=== PATIENT | female | born 1965 | race Caucasian/White ===

== ENCOUNTER 2016-06-09 15:57 | Emergency (ER) | payer BC ==
[2016-06-09] MEDS ORDERED: ASPIRIN 81 MG CHEWABLE TABLET PO ONE (16:22)
[2016-06-09] MEDS ORDERED: 0.9 % SODIUM CHLORIDE 1000ML 1,000 ML IV PRN (16:22)
[2016-06-09] MEDS ORDERED: GUAIFENESIN/D-METH. 10 ML UDC PO ONE (16:26)
--- NOTE | 2016-06-09 16:26 | Emergency Department Record ---
History of Present Illness - General Chief Complaint: Chest Pain Stated Complaint: CHEST PAIN WHEN COUGHING Time Seen by Provider: 06/09/16 16:19 Source: Patient, RN notes reviewed Mode of Arrival: Ambulatory - History of Present Illness Initial Comments: cough and chillles and fever and chest pain with coughing and history of percarditis oct 2015. sweating and she has had a flu shot this season Onset/Timin -: Days(s) Onset: During rest Pain Location: Substernal Pain Radiation: Back Severity scale (1-10): >10 Quality: Sharp, Other Improves With: Nothing Worsens With: Nothing Treatments Prior to Arrival: Other Treatment Prior to Arrival Comment:: Advil 1500 - Related Data Home Medications Medication Instructions Recorded Confirmed Last Taken Albuterol Sulfate [Proventil Hfa] 1 - 2 puff INH .EVERY 4-6 HOURS PRN 11/15/15 06/09/16 06/08/16 Lisinopril 10 mg PO DAILY 11/15/15 06/09/16 06/07/16 Pioglitazone HCl [Actos] 30 mg PO DAILY 11/15/15 06/09/16 06/07/16 Sitagliptin Phosphate [Januvia] 100 mg PO DAILY 11/15/15 06/09/16 06/07/16 Previous Rx's Medication Instructions Recorded Azithromycin 500 mg PO DAILY #7 tablet 06/09/16 Prednisone [Prednisone 10Mg] 10 mg PO ASDIR #30 tab 06/09/16 Allergies Allergy/AdvReac Type Severity Reaction Status Date / Time codeine Allergy Unknown NAUSEA Verified 11/15/15 08:02 Travel Screening - Travel/Exposure Within Last 30 Days Have you traveled within the last 30 days?: No - Travel/Exposure Within Last Year Have you traveled outside the [place] in the last year?: No - Additonal Travel Details Have you been exposed to anyone with a communicable illness?: No - Travel Symptoms Symptom Screening: None Review of Systems Reviewed: No additional complaints except as noted below Constitutional: Reports: As per HPI, Chills, Fever. Denies: Malaise, Night sweats, Weakness, Weight change Eyes: Reports: As per HPI. Denies: Eye discharge, Eye pain, Photophobia, Vision change ENT: Reports: As per HPI, Congestion. Denies: Dental pain, Ear pain, Epistaxis , Hearing loss, Throat pain Respiratory: Reports: As per HPI, Cough, Wheezes. Denies: Dyspnea, Hemoptysis, Stridor Cardiovascular: Reports: As per HPI, Chest pain (with coughing). Denies: Arrhythmia, Dyspnea on exertion, Edema, Murmurs, Orthopnea, Palpitations, Paroxysmal nocturnal dyspnea, Rheumatic Fever, Syncope Endocrine: Reports: As per HPI. Denies: Fatigue, Heat or cold intolerance, Polydipsia, Polyuria Gastrointestinal: Reports: As per HPI. Denies: Abdominal pain, Constipation, Diarrhea, Hematemesis, Hematochezia, Melena, Nausea, Vomiting Genitourinary: Reports: As per HPI. Denies: Abnormal menses, Discharge, Dyspareunia, Dysuria, Frequency, Hematuria, Incontinence, Retention, Urgency Musculoskeletal: Reports: As per HPI. Denies: Arthralgia, Back pain, Gout, Joint swelling, Myalgia, Neck pain Skin: Reports: As per HPI. Denies: Bruising, Change in color, Change in hair/ nails, Lesions, Pruritus, Rash Neurological: Reports: As per HPI. Denies: Abnormal gait, Confusion, Headache, Numbness, Paresthesias, Seizure, Tingling, Tremors, Vertigo, Weakness Psychiatric: Reports: As per HPI. Denies: Anxiety, Auditory hallucinations, Depression, Homicidal thoughts, Suicidal thoughts, Visual hallucinations Hematological/Lymphatic: Reports: As per HPI. Denies: Anemia, Blood Clots, Easy bleeding, Easy bruising, Swollen glands Past Medical History - SOCIAL HISTORY Smoking Status: Current every day smoker Alcohol Use: None Drug Use: None - RESPIRATORY Hx Respiratory Disorders: No - CARDIOVASCULAR Hx Cardio Disorders: No - NEURO Hx Neuro Disorders: No - GI Hx GI Disorders: No - Hx Genitourinary Disorders: No - ENDOCRINE Hx Endocrine Disorders: Yes Hx Diabetes: Yes - MUSCULOSKELETAL Hx Musculoskeletal Disorders: No - PSYCH Hx Psych Problems: No - HEMATOLOGY/ONCOLOGY Hx Hematology/Oncology Disorders: No Family Medical History Any Significant Family History?: No Hx Diabetes: Mother Hx HTN: Mother, Grandparents Physical Exam - General General Appearance: Alert, Oriented x3, Cooperative, No acute distress - Head Head exam: Normal inspection - Eye Eye exam: Normal appearance, PERRL Pupils: Normal accommodation - ENT ENT exam: Normal exam, Mucous membranes moist, Normal external ear exam, Normal orophraynx, TM's normal bilaterally Ear exam: Normal external inspection. negative: External canal tenderness Nasal Exam: Normal inspection. negative: Discharge, Sinus tenderness Mouth exam: Normal external inspection, Tongue normal Teeth exam: Normal inspection. negative: Dental caries Throat exam: Normal inspection. negative: Tonsillar erythema, Tonsillar exudate - Neck Neck exam: Normal inspection, Full ROM. negative: Tenderness - Respiratory Respiratory exam: Normal lung sounds bilaterally. negative: Respiratory distress - Cardiovascular Cardiovascular Exam: Regular rate, Normal rhythm, Normal heart sounds - GI/Abdominal GI/Abdominal exam: Soft, Normal bowel sounds. negative: Tenderness - Rectal Rectal exam: Deferred - exam: Deferred - Extremities Extremities exam: Normal inspection, Full ROM, Normal capillary refill. negative: Tenderness - Back Back exam: Reports: Normal inspection, Full ROM. Denies: Muscle spasm, Rash noted, Tenderness - Neurological Neurological exam: Alert, Normal gait, Oriented X3, Reflexes normal - Psychiatric Psychiatric exam: Normal affect, Normal mood - Skin Skin exam: Dry, Intact, Normal color, Warm Course Vital Signs 06/09/16 16:01 Temperature 99.8 F H Pulse Rate 107 H Respiratory 20 Rate Blood Pressure 134/86 Pulse Ox 92 L Medical Decision Making - Data Complexity MDM Data: Labs Ordered and/or Reviewed, X-Ray Ordered and/or Reviewed (chest no acute abnormality), EKG Ordered and/or Reviewed (No acute changes) - Lab Data Result diagrams: 06/09/16 16:15 06/09/16 16:15 Lab Results 06/09/16 Range/Units 16:11 POC Glucose 170 H (70-110) mg/dL Disposition Clinical Impression: Bronchitis Disposition: Home, Self-Care Condition: (1) Good Instructions: Acute Bronchitis (ED) Additional Instructions: follow up with family Drt. in 3 days robitussin dm 10 ml every 4 hours drink lots of water Prescriptions: Azithromycin 500 mg PO DAILY #7 tablet Prednisone [Prednisone 10Mg] 10 mg PO ASDIR #30 tab Forms: Patient Portal Access Time of Disposition: 18:06
[2016-06-09 17:05] LABS: HEMATOCRIT 42.2 % (35.0-47.0); HEMOGLOBIN 13.9 gm/dl (11.6-16.0); MEAN CELL VOLUME 87.6 fl (81-97); MEAN CORPUSCULAR HEMOGLOBIN 28.8 pg (27-33); MEAN CORPUSCULAR HGB CONC 32.9 g/dl (32-36); MEAN PLATELET VOLUME 10.4 fl (7.4-10.4); PLATELET COUNT 249 K/uL (130-400); RED BLOOD COUNT 4.82 M/uL (3.80-5.40); RED CELL DISTRIBUTION WIDTH 13.3 % (11.5-14.5); WHITE BLOOD COUNT W/O DIFF 4.4 K/uL (4.2-12.2)
[2016-06-09] MEDS ORDERED: METHYLPREDNISOLONE PF 125MG/VIAL IVP ONE (17:11)
[2016-06-09 17:16] LABS: ANION GAP 10.3 (7-16); BLOOD UREA NITROGEN 13 mg/dL (7-17); CARBON DIOXIDE 24.7 mmol/L (22-30); CREATININE 0.7 mg/dL (0.52-1.04); EST GLOMERULAR FILTRATION RATE > 60 ml/min; GLUCOSE,RANDOM 186 mg/dL (70-110)
[2016-06-09 17:18] LABS: INFLUENZA A NEGATIVE (NEGATIVE); INFLUENZA B NEGATIVE (NEGATIVE)
[2016-06-09 17:31] LABS: CKMB < 0.2 ug/L (0-6); PLATELET ESTIMATE NORMAL (NORMAL); TROPONIN I < 0.012 ng/mL (0.00-0.034)
[2016-06-09] MEDS ORDERED: AZITHROMYCIN 500 MG TABLET PO ONE (18:04)
--- NOTE | 2016-06-10 10:17 | RADIOLOGY REPORT ---
EXAM: CHEST HISTORY: SHORTNESS OF BREATH. TECHNIQUE: Two views of the chest were obtained. Comparison: 11/15/15. FINDINGS: The heart is not enlarged and there is no mediastinal mass. No acute infiltrate or vascular congestion identified. IMPRESSION: NO ACUTE CARDIAC OR PULMONARY ABNORMALITY. JOB NUMBER: [id number] MTDD
== END 2016-06-09 18:34 | disposition home or self-care (01) ==
LOC: ER 15:57
DX: J20.9 Acute bronchitis, unspecified (principal); R06.02 Shortness of breath; I31.9 Disease of pericardium, unspecified; E11.9 Type 2 diabetes mellitus without complications; F17.210 Nicotine dependence, cigarettes, uncomplicated
CPT/HCPCS: 36416; 71020; 80048; 82553; 82948; 84484; 85027; 85730; 87400; 93005; 93010; 96374; 99284; J2930

== ENCOUNTER 2017-03-11 11:09 | Observation (INO) | payer BC ==
--- NOTE | 2017-03-11 11:45 | Emergency Department Record ---
History of Present Illness - General Chief Complaint: Rapid heartbeat Stated Complaint: FEELS HEART FLOPPING Time Seen by Provider: 03/11/17 11:33 Source: Patient Mode of Arrival: Ambulatory Limitations: No limitations - History of Present Illness Initial Comments: The patient is here due to a 5-6 hour hx of palpitations and feeling that her heart is skipping beats. The symptoms come and go and she also has had intermittent SOB at times. The SOB does seem to be worse with exertion at times also and associated with mild lightheadedness. She denies any CP, fever, chills , or cough. The patient did have a heart catheterization 6 weeks ago that demonstrated clear coronary arteries but mildly elevated L sided wedge pressures. MD Complaint: "Heart racing", Irregular heart beat, Palpitations Onset/Timin -: Hour(s) Context: Awoke with symptoms Arrythmia History: Other Associated Symptoms: Denies other symptoms - Related Data Home Medications Medication Instructions Recorded Confirmed Last Taken Albuterol Sulfate [Proair Hfa] 1 - 2 puff IH .EVERY 4-6 HOURS PRN 03/11/1703/11 Unknown Budesonide/Formoterol Fumarate 10.2 gm IH BID 03/11/17 03/11/17 Unknown [Symbicort 160-4.5 Mcg Inhaler] Bumetanide 1 mg PO BID 03/11/17 03/11/17 Unknown Cetirizine HCl [Zyrtec] 10 mg PO DAILY 03/11/17 03/11/17 Unknown Citalopram Hydrobromide [Celexa] 20 mg PO DAILY 03/11/17 03/11/17 Unknown Hydroxychloroquine Sulfate 200 mg PO BID 03/11/17 03/11/17 Unknown [Plaquenil] Metoprolol Succinate [Toprol Xl] 25 mg PO BID 03/11/17 03/11/17 Unknown Mycophenolate Mofetil [Cellcept] 250 mg PO DAILY 03/11/17 03/11/17 Unknown Potassium Chloride 25 meq PO DAILY 03/11/17 03/11/17 Unknown Prednisone [Prednisone 1Mg] 1 mg PO DAILY 03/11/17 03/11/17 Unknown Tiotropium [place] [Spiriva] 1 cap IH DAILY 03/11/17 03/11/17 Unknown Previous Rx's Medication Instructions Recorded Azithromycin 500 mg PO DAILY #7 tablet 06/09/16 Prednisone [Prednisone 10Mg] 10 mg PO ASDIR #30 tab 06/09/16 Allergies Allergy/AdvReac Type Severity Reaction Status Date / Time montelukast [From Singulair] Allergy RASH Verified 03/11/17 11:15 codeine AdvReac Unknown NAUSEA Verified 03/11/17 11:15 amoxicillin [From Augmentin] AdvReac VOMITING Verified 03/11/17 11:15 clavulanic acid AdvReac VOMITING Verified 03/11/17 11:15 [From Augmentin] Travel Screening - Travel/Exposure Within Last 30 Days Have you traveled within the last 30 days?: No Review of Systems Constitutional: Denies: Chills, Fever Eyes: Denies: Eye discharge ENT: Denies: Congestion Respiratory: Reports: Dyspnea. Denies: Cough Past Medical History - SOCIAL HISTORY Smoking Status: Former smoker Alcohol Use: Occasional Drug Use: None - RESPIRATORY Hx Respiratory Disorders: Yes Hx Asthma: Yes - CARDIOVASCULAR Hx Cardio Disorders: Yes Hx CHF: Yes (left sided) Hx Irregular Heartbeat: Yes Comment:: double heart cath 01/[address] escobedo - NEURO Hx Neuro Disorders: No - GI Hx GI Disorders: No - Hx Genitourinary Disorders: No - ENDOCRINE Hx Endocrine Disorders: Yes Hx Diabetes: Yes - MUSCULOSKELETAL Hx Musculoskeletal Disorders: No - PSYCH Hx Psych Problems: No - HEMATOLOGY/ONCOLOGY Hx Hematology/Oncology Disorders: No Family Medical History Any Significant Family History?: Yes Hx Diabetes: Mother Hx HTN: Mother, Grandparents Physical Exam - General General Appearance: Alert, Oriented x3, Cooperative, No acute distress - Head Head exam: Atraumatic, Normocephalic, Normal inspection - Eye Eye exam: Normal appearance, PERRL - Neck Neck exam: Normal inspection, Full ROM. negative: Tenderness - Respiratory Respiratory exam: Normal lung sounds bilaterally. negative: Respiratory distress - Cardiovascular Cardiovascular Exam: Regular rate - GI/Abdominal GI/Abdominal exam: Soft, Normal bowel sounds. negative: Tenderness - Extremities Extremities exam: Normal inspection, Full ROM, Normal capillary refill. negative: Calf tenderness, Tenderness - Neurological Neurological exam: Alert. negative: Motor sensory deficit Course Vital Signs 03/11/17 11:11 Pulse Rate 74 Respiratory 20 Rate Blood Pressure 108/52 Pulse Ox 98 - Reevaluation(s) Reevaluation #1: The patient is resting comfortably. She denies any pain or SOB. Her RA biox is 97% on RA. We are waiting on Dr. Escobedo's consult. 03/11/17 14:00 Reevaluation #2: The patient is doing well. She is still having some symptomatic Ectopy. She is concerned about going home with the palpitations and intermittent discomfort. 03/11/17 16:00 Reevaluation #3: I did discuss the issues with Dr. Escobedo and he is aware of the plan. I also did discuss the case with Dr. Hartley and he is willing to accept the patient overnight for monitoring. 03/11/17 17:04 Medical Decision Making - Data Complexity MDM Data: Labs Ordered and/or Reviewed, X-Ray Ordered and/or Reviewed, EKG Ordered and/or Reviewed - Lab Data Result diagrams: 03/11/17 11:15 03/11/17 11:15 - EKG Data -: EKG Interpreted by Me (Venricular bigeminy at 90's. Neg ischemic changes.) - Radiology Data Radiology results: Report reviewed (CXR: No acute process. L Leg Doppler: neg.) Disposition Disposition: Admit Clinical Impression: Heart palpitations Disposition: Still a Patient at [facility] Decision to Admit: Admit from ER Decision to Admit Date: 03/11/17 Decision to Admit Time: 16:58 Accepting Physician: Odilia Time Discussed w/Accepting Physician: 16:58 Condition: (2) Stable Instructions: Heart Palpitations (ED) Forms: Patient Portal Access Time of Disposition: 16:58 Quality - Quality Measures Quality Measures: N/A - Blood Pressure Screening View Details: Yes Does Patient Have Any of the Following: No Blood Pressure Classification: Normal BP Reading Systolic Measurement: 108 Diastolic Measurement: 52 Screening for High Blood Pressure: < Normal BP, F/U Not Required > [G8783]
[2017-03-11 11:54] LABS: BASO % 0.1 % (0-6); EOS % 0.6 % (0-6); GRAN % 77.4 % (47-80); HEMATOCRIT 40.2 % (35.0-47.0); HEMOGLOBIN 13.5 gm/dl (11.6-16.0); LYMPH % 14.2 % (16-45); MEAN CORPUSCULAR HEMOGLOBIN 29.2 pg (27-33); MEAN CORPUSCULAR HGB CONC 33.6 g/dl (32-36); MEAN PLATELET VOLUME 10.6 fl (7.4-10.4); MONO % 7.7 % (0-9); PLATELET COUNT 321 K/uL (130-400); RED BLOOD COUNT 4.62 M/uL (3.80-5.40); RED CELL DISTRIBUTION WIDTH 13.9 % (11.5-14.5); WHITE BLOOD COUNT W/O DIFF 13.8 K/uL (4.2-12.2)
[2017-03-11 12:03] LABS: BLOOD UREA NITROGEN 22 mg/dL (6-20); CREATININE 0.7 mg/dL (0.5-0.9); EST GLOMERULAR FILTRATION RATE > 60 mL/min
[2017-03-11 12:06] LABS: GLUCOSE,RANDOM 157 mg/dL (74-109)
[2017-03-11 12:09] LABS: CREATINE PHOSPHOKINASE 85 U/L (26-192); INR 0.99; PARTIAL THROMBOPLASTIN TIME 25.9 SECONDS (24.5-39.1); PROTHROMBIN TIME (PATIENT) 10.7 SECONDS (9.5-12.1)
[2017-03-11 12:12] LABS: CKMB < 1.0 ng/mL (<3.77)
[2017-03-11 12:19] LABS: THYROID STIMULATING HORMONE 2.09 uIU/mL (0.270-4.20)
[2017-03-11 12:20] LABS: NTpro B-NATRIURETIC PEPTIDE 81.83 pg/mL (<125)
[2017-03-11] MEDS ORDERED: POTASSIUM CHLORIDE 20 MEQ TABLET PO ONE (12:57)
[2017-03-11] MEDS ORDERED: MAGNESIUM SULFATE 16 MEQ in 0.9 % SODIUM CHLORIDE 100ML 100 ML IV ONE (12:58)
[2017-03-11] MEDS ORDERED: ACETAMINOPHEN 325 MG TAB PO ONE (13:15)
[2017-03-11] MEDS ORDERED: ACETAMINOPHEN 500 MG TABLET PO PRN (18:49)
[2017-03-11] MEDS ORDERED: PREDNISONE 10 MG TAB PO SCH (18:49)
[2017-03-11] MEDS ORDERED: ALBUTEROL HFA 8 GM INHALER INH PRN (18:49)
[2017-03-11] MEDS ORDERED: ACETAMINOPHEN 500 MG TABLET PO ONE (20:17)
[2017-03-11 20:55] LABS: CKMB < 1.0 ng/mL (<3.77)
[2017-03-11] MEDS: MAGNESIUM OXIDE 400 MG TABLET PO SCH (21:48)
[2017-03-11] MEDS: METOPROLOL TART 25 MG TABLET PO SCH (21:48)
[2017-03-11] MEDS: BUMETANIDE 1 MG TABLET PO SCH (21:48)
[2017-03-11] MEDS: HYDROXYCHLOROQUINE SULFATE 200 MG TABLET PO SCH (21:49)
[2017-03-12 05:57] LABS: CKMB < 1.0 ng/mL (<3.77)
--- NOTE | 2017-03-12 06:55 | RADIOLOGY REPORT ---
EXAM: CHEST, TWO VIEWS HISTORY: PATIENT STATES FEELS LIKE HEART IS "FLIPPING" FOR TWO DAYS. CHEST HEAVINESS. TECHNIQUE: Upright PA and lateral views of the chest were obtained. Comparison: Two view chest radiographic examination dated 06/09/16. CT of the chest with contrast dated 10/29/16. FINDINGS: The heart projects borderline to mildly enlarged, but without pulmonary venous hypertension. No confluent air space opacity is seen nor is there costophrenic angle blunting or pneumothorax. Mild degenerative changes scattered within the visualized spine and shoulder girdles, stable. IMPRESSION: BORDERLINE TO MILD CARDIOMEGALY WITHOUT PULMONARY VENOUS HYPERTENSION. NO EVIDENCE OF AN ACUTE PULMONARY PROCESS. JOB NUMBER: [id number] MTDD
--- NOTE | 2017-03-12 06:58 | US VENOUS DOPPLER REPORT ---
EXAM: VENOUS DOPPLER ULTRASOUND OF THE LEFT LOWER EXTREMITY HISTORY: STABBING LEFT LEG PAIN SINCE THIS MORNING. TECHNIQUE: Crocker scale, color Doppler and Duplex Doppler evaluation of the left lower extremity was performed. Comparison: Radiographic examination of the left knee dated 01/30/17. FINDINGS: The crocker scale images demonstrate the common femoral vein, superficial femoral vein, greater saphenous vein, deep femoral vein, and popliteal vein to be anechoic and completely compressible. Normal venous Doppler waveforms are noted at all levels. Crocker scale and color Doppler evaluation of the veins of the lower leg do not demonstrate DVT. IMPRESSION: NO EVIDENCE OF DEEP VENOUS THROMBOSIS WITHIN THE LEFT LOWER EXTREMITY. JOB NUMBER: [id number] MTDD
[2017-03-12] MEDS ORDERED: Non-Formulary MISC (Cetirizine Hcl [Zyrtec] 10 MG) PO SCH (10:00)
[2017-03-12] MEDS ORDERED: PIOGLITAZONE HCL 30 MG PO SCH (10:00)
[2017-03-12] MEDS ORDERED: TIOTROPIUM BROMIDE 5 CAPSULES INH SCH (10:00)
[2017-03-12] MEDS ORDERED: MYCOPHENOLATE MOFETIL 250 MG PO SCH ×2 (10:00→10:15)
[2017-03-12] MEDS ORDERED: CITALOPRAM 20 MG TABLET PO SCH (10:00)
[2017-03-12] MEDS ORDERED: PREDNISONE 1 MG TABLET PO SCH ×2 (10:00→10:15)
[2017-03-12] MEDS ORDERED: Non-Formulary MISC (Sitagliptin Phosphate [Januvia] 100 MG) PO SCH (10:00)
[2017-03-12] MEDS ORDERED: POTASSIUM CHLORIDE 25 MEQ PO SCH (10:00)
[2017-03-12] MEDS ORDERED: LISINOPRIL 10 MG TABLET PO SCH (10:00)
[2017-03-12] MEDS ORDERED: LORATADINE 10 MG TABLET PO SCH (10:15)
[2017-03-12] MEDS ORDERED: BUMETANIDE 1 MG TABLET PO SCH (10:15)
[2017-03-12] MEDS ORDERED: PIOGLITAZONE HCL 15 MG TABLET PO SCH (10:15)
[2017-03-12] MEDS ORDERED: POTASSIUM CHLORIDE 20 MEQ TABLET PO SCH (10:15)
[2017-03-12] MEDS ORDERED: ALBUTEROL HFA 8 GM INHALER INH PRN (10:15)
[2017-03-12] MEDS: MAGNESIUM OXIDE 400 MG TABLET PO SCH (10:29)
[2017-03-12] MEDS: HYDROXYCHLOROQUINE SULFATE 200 MG TABLET PO SCH (10:29)
[2017-03-12] MEDS: METOPROLOL TART 25 MG TABLET PO SCH (10:30)
[2017-03-12] MEDS: BUMETANIDE 1 MG TABLET PO SCH (13:00)
--- NOTE | 2017-03-12 13:58 | Discharge Note ---
VTE H&P Assessment - Risk for VTE Risk for VTE: No Risk Level: Very Low Risk Assessment Date: 03/12/17 Risk Assessment Time: 13:55 VTE Orders Placed or Will Be Placed: No VTE Reason for No Prophylaxis: Not Indicated Discharge Medications - Discharge Medications Home Medications: Ambulatory Orders Albuterol Sulfate [Proventil Hfa] 1 - 2 puff INH .EVERY 4-6 HOURS PRN 11/15/15 [ Last Taken 06/08/16] Lisinopril 10 mg PO DAILY 11/15/15 [Last Taken 06/07/16] Sitagliptin Phosphate [Januvia] 100 mg PO DAILY 11/15/15 [Last Taken 06/07/16] Albuterol Sulfate [Proair Hfa] 1 - 2 puff IH .EVERY 4-6 HOURS PRN 03/11/17 [ Last Taken Unknown] Bumetanide 1 mg PO BID 03/11/17 [Last Taken Unknown] Cetirizine HCl [Zyrtec] 10 mg PO DAILY 03/11/17 [Last Taken Unknown] Citalopram Hydrobromide [Celexa] 20 mg PO DAILY 03/11/17 [Last Taken Unknown] Hydroxychloroquine Sulfate [Plaquenil] 200 mg PO BID 03/11/17 [Last Taken Unknown] Mycophenolate Mofetil [Cellcept] 250 mg PO BID 03/11/17 [Last Taken Unknown] Potassium Chloride 25 meq PO DAILY 03/11/17 [Last Taken Unknown] Metoprolol Tartrate 25 mg PO TID 03/12/17 [Last Taken Unknown] Multivitamin [Daily Multiple Vitamin] 1 each PO BID 03/12/17 [Last Taken Unknown ] Pioglitazone HCl 45 mg PO DAILY 03/12/17 [Last Taken Unknown] Prednisone [Prednisone 1Mg] 4 mg PO DAILY 03/12/17 [Last Taken Unknown] Prednisone [Prednisone 5Mg] 5 mg PO 1600 03/12/17 [Last Taken Unknown] Discharge Note - Date Date of Discharge Note: 03/12/17 Disposition: Home, Self-Care Condition: (2) Stable Instructions: Heart Palpitations (ED) Additional Instructions: follow up with Dr. Kaplan in one week increase lopressor tartrate to 25 mg three times a day follow up with Dr. Escobedo as scheduled Forms: Patient Portal Access
[2017-03-12] MEDS ORDERED: PREDNISONE 5 MG TAB PO SCH (16:00)
--- NOTE | 2017-03-12 18:10 | Medical Records Consult ---
DATE OF CONSULTATION: 03/11/2017 REFERRING PHYSICIAN: DR. FELI BRITO. REASON FOR CONSULTATION: DIFFICULTY IN BREATHING AND PALPITATIONS. HISTORY OF PRESENT ILLNESS: Miss Jimenes is a delightful 52-year-old female with a history of diabetes mellitus type 2. She was in her usual health until November of 2015 when she presented to the Emergency Department with complaints of chest discomfort and had mildly elevated troponins at that time as well. She was found to have pericarditis and was treated with Colchicine at that time and since then she has had multiple issues; most prominently shortness of breath. Her ESR and C-reactive proteins have been elevated and she is following up with a precision devices inspector/tester as well. The patient is also in the process of getting a second opinion at the [facility] and as a referral was sent by her primary care physician. The patient underwent a stress test, which was abnormal, and because of her shortness of breath, we did cardiac catheterizations on her last month, which did not show any obstructive coronary artery disease and she did have mildly elevated pulmonary pressure but it was mostly pulmonary venous hypertension with pulmonary capillary wedge pressure of 22 mmHg and a left ventricular end- diastolic pressure of 19 mmHg. At that point, we had her increase her Bumex dose to 1 mg p.o. b.i.d. The patient has been having more episodes of palpitations and has been having very significant dyspnea on exertion. She says every time she exerts herself she feels her heart flip flopping in her chest. Since her symptoms were not going away, she presented to the Emergency Department. In the E.R, her presenting EKG showed ventricular bigeminy. The patient currently is chest-pain- free that if she exerts herself slightly, she would have the shortness of breath. HOME MEDICATIONS: Her home medications are: Spiriva one capsule inhaler daily Januvia 100 mg p.o. daily Prednisone 10 mg p.o. daily Potassium Chloride 20 mEq p.o. daily Actos 30 mg p.o. daily Cellcept 250 mg p.o. daily Toprol-XL 25 mg b.i.d. Lisinopril 10 mg p.o. daily Hydroxychloroquine 200 mg p.o. b.i.d. Celexa 20 mg p.o. daily Zyrtec 10 mg p.o. daily Bumex 1 mg p.o. b.i.d. Azithromycin 500 mg p.o. daily Albuterol prn ALLERGIES: SINGULAIR. CODEINE. AMOXICILLIN. 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 She recently has quit smoking. No illicit drug use. REVIEW OF SYSTEMS: She denies any fevers or chills. She does have pedal edema but not worsened. She complains of chest tightness and heaviness as well as palpitations as explained in the HPI. No bleeding complications. PHYSICAL EXAMINATION: VITAL SIGNS: Her vital signs show a blood pressure of 110/70 mmHg with a heart rate of 74 beats per minute. GENERAL: The patient is a 52-year-old female lying comfortably in bed and not in any apparent distress. Alert and oriented x3. HEENT EXAMINATION: Normocephalic/atraumatic. Pupils are equal and reactive to light. Extraocular muscles are intact. NECK: Supple. No thyromegaly. LUNGS/CVS: She has normal S1 and S2. No JVD and no pedal edema. RESPIRATORY EXAMINATION: Reveals that the lungs are clear to auscultation bilaterally. ABDOMEN: Soft and nontender. NEUROLOGICAL EXAMINATION: Nonfocal. LABORATORY DATA: Shows white count of 13.8, hemoglobin 13.5, platelet count of 321, d-dimer is 0.39, sodium 141, potassium 4.3, BUN 22, creatinine 0.7, AST 16 , ALT 39, troponin less than 0.010, NT-pro-BNP of 81, albumin 3.8, and TSH 2.09. X-RAY: Chest x-ray doesn't show any acute changes. ECG: The ECG showed sinus rhythm with ventricular bigeminy. Telemonitor shows sinus rhythm. ASSESSMENT AND PLAN: 1. PALPITATIONS WITH DYSPNEA ON EXERTION: The patient's palpitations and dyspnea on exertion is most likely because of the ventricular ectopy. The patient doesn't have any obstructive coronary artery disease and has normal left ventricular systolic function. I recommended giving Magnesium to the patient because of her being on the diuretics and also replacing potassium to keep the potassium around 4.0. With the IV Magnesium, her ventricular ectopy has improved. I would also recommend increasing the Metoprolol dose to 25 mg t.i.d. She otherwise is stable from a cardiac standpoint. I would continue her on the current regimen and I would recommend doing a 24-hour Holter monitor the week after being on the higher dose of the magnesium supplementation as well as the higher dose of the beta-rey and then evaluating the ventricular ectopic burden. 2. Since she recently had a normal coronary angiography, cardiac status stability reassurance was provided. 3. No further cardiac work-up is needed at this time. JOB NUMBER: [id number] MTDD
--- NOTE | 2017-03-13 12:31 | Discharge Summary ---
DATE: 03/12/2017 DISCHARGE DIAGNOSES: 1. Palpitations. 2. Low magnesium. 3. Possible lupus. 4. Diabetes mellitus type 2. 5. Asthma. ATTENDING PHYSICIAN: Brain Hartley DO REASON FOR HOSPITALIZATION: Palpitations. She woke up with palpitations and she felt some heaviness in her chest. She came into the clinic and saw Dr. Magda Escobedo. Recommended she go to the emergency department. Dr. Frank saw her in the emergency department. Cardiac enzymes were negative. EKG showing some PVCs. She states that she was having lots of them. Dr. Magda Escobedo saw her in the emergency department and the discussion was to increase the metoprolol tartrate to 25 mg 3 times a day from 2 times a day. Also increase the magnesium supplements to twice a day because her magnesium was a little bit low. However, she as feeling so uneasy about the palpitations, she was admitted for observation and I followed her through the hospital through the night. SIGNIFICANT FINDINGS: Two sets of cardiac enzymes negative. Two EKGs, no acute changes, some PVCs on the first EKG. She had a heart catheterization done [address] Magda Escobedo which was negative coronary arteries but some increased pressure on her heart from her lungs possibly from a lung disease and early diastolic heart failure, per the patient. THERAPY PROVIDED: Observation and fluids. She is feeling much better on discharge. HOSPITAL COURSE: Much improved. CONDITION ON DISCHARGE: Much improved. DISCHARGE INSTRUCTIONS: Follow up with Dr. Kaplan in [address] Magda Escobedo as scheduled. Follow up with the [facility] as scheduled to workup her lupus disease and her lung disease. Return to the emergency department with any problems. Increase the magnesium to twice a day. Increase the Lopressor tartrate 25 mg to 3 times a day. Continue all the rest of her normal medications. Albuterol 2 puffs q.4 h. Bumex 1 mg b.i.d. Zyrtec 10 mg daily. Celexa 20 mg daily. Plaquenil 200 mg b.i.d. Lisinopril 10 mg daily. Potassium 1 daily. Januvia 100 mg daily. CellCept 250 mg b.i.d. Prednisone as prescribed. Actos 45 mg daily. Multivitamin one a day. CC: [facility]. Kaplan [facility]
--- NOTE | 2017-03-13 12:38 | History and Physical Report ---
DATE OF ADMISSION: 03/12/2017 Surgeon: Brain Hartley DO Primary care physician: Dr. Han. CHIEF COMPLAINT: Palpitations. HISTORY OF PRESENT ILLNESS: This 52-year-old female presented, stating that she woke up feeling her heart racing this morning. She states that she feels some tightness with it. She states she almost passed out this morning. She states she recently had a double heart cath by Dr. Magda Escobedo and was told her coronary arteries were good, but she had a little bit of increased pressure in her heart because of her lung disease, diastolic heart failure. She has possibly lupus. She sees a spring salvage worker and she is going to the [facility]. She had her lungs checked out by a router operator radial in [place], Dr. Reed, and her lungs checked okay per the patient, however, because of this possible connective disorder, she is going to the [facility] to be checked out more thoroughly. She was seen by Dr. Magda Escobedo yesterday in the clinic. He sent her to the ER for evaluation. Had an EKG and telemetry, and seen Dr. Frank who evaluated her, and initially Dr. Magda Escobedo came over to the ER and saw her, and they were going to send her home on Lopressor metoprolol tartrate 25 mg 3 times a day instead of 2 times a day, however, she was having so many skipped beats, she felt very uneasy going home, so Dr. Frank called me and she was admitted to my service for observation, serial cardiac enzymes, serial EKGs. PAST MEDICAL HISTORY: Asthma. New diagnosis of possible diastolic heart failure secondary to lung disease and possibly lupus, still being evaluated at the [facility] for this entity. She has diabetes mellitus type 2 and on Januvia. SOCIAL HISTORY: No drug use. Occasional alcohol use. Former cigarette smoker. PAST SURGICAL HISTORY: Hysterectomy, stomach mass removal, benign. Mass removed from the right breast, benign. MEDICATIONS ON ADMISSION: 1. Metoprolol tartrate 25 mg b.i.d. 2. Multiple vitamins 1 b.i.d. 3. Prednisone 4 mg daily. 4. Actos 45 mg daily. 5. Prednisone dose is being adjusted by her spring salvage worker. It may be anywhere between 1 and 5 mg. 6. Januvia 100 mg a day. 7. Potassium chloride 25 mEq daily. 8. Lisinopril 10 mg daily. 9. Plaquenil 200 mg b.i.d. 10. Celexa 20 mg daily. 11. Zyrtec 10 mg daily. 12. Bumex 1 mg b.i.d. 13. Proventil 2 puffs q.4h. p.r.n. 14. She is also on Mag-Ox, taking it once a day, but her magnesium was a little bit low in the emergency department. Dr. Magda Escobedo recommended the magnesium oxide go up to twice a day. ALLERGIES: CODEINE, AMOXICILLIN, AUGMENTIN, AND MONTELUKAST. FAMILY PSYCHOSOCIAL HISTORY: Her mother has diabetes, hypertension. Grandparents have hypertension. REVIEW OF SYSTEMS: HEENT: No upper respiratory infectious symptoms, cough, cold, or congestion. CARDIOVASCULAR: See chief complaint. She has palpitations, she did have some chest pain. She is feeling much better today. She says cocoa or chocolate causes her to have palpitations. Coffee and stimulants cause her to have palpitations. RESPIRATORY: She is breathing fine at this time. No respiratory distress or wheezing. GASTROINTESTINAL: No nausea, vomiting, diarrhea, black stools or bloody stools. GENITOURINARY: No dysuria, hematuria, or frequency or burning on urination. MUSCULOSKELETAL: No joint or bone abnormalities. NEUROLOGIC: No CVA paralysis or paresthesias. GYNECOLOGIC: No abnormal lumps in her breasts at this time or abnormal vaginal bleeding. She had a hysterectomy. ENDOCRINE: She has diabetes mellitus type 2, and on Actos and Januvia. INTEGUMENT: No rash, change in mole, or yellow skin. PHYSICAL EXAMINATION: GENERAL: Height is 5 feet 5 inches, weight is 200 pounds. VITAL SIGNS: Temperature is 98.5, blood pressure was 94/58, pulse is 63, respiratory rate is 18, pulse OX is 97% on room air. HEENT: Pupils are equal, round, and reactive to light and accomodation. Extraocular muscles intact. Throat is clear. Nose is clear. Tympanic membranes are henry. NECK: Supple. No jugular venous distention, no hepatojugular reflux, no carotid bruits. Thyroid is smooth. CARDIOVASCULAR: Regular rate and rhythm with occasional PVCs on the monitor, which she senses. No clicks, rubs, or gallops. RESPIRATORY: Breath sounds are equal bilaterally. No wheezing. ABDOMEN: Soft and nontender. No hepatosplenomegaly. No masses, no tenderness. Bowel sounds are active, no bruits. EXTREMITIES: No pitting edema, no cyanosis, no clubbing. Full range of motion, peripheral pulses are good. BREASTS: Deferred. RECTAL: Deferred. GYNECOLOGIC: Deferred. NEUROLOGIC: Cranial nerves 2 through 12 intact. No gross defects. Sensation normal, strength normal, deep tendon reflexes equal bilaterally. Babinski's is negative. MENTAL STATUS: Alert and oriented x 3. IMPRESSION: 1. Palpitations. 2. Hypomagnesemia. 3. Possible lupus. 4. Asthma, stable. 5. Some connective tissue disorder, possibly arthritis, sees a spring salvage worker, or possible lupus. 6. She has diabetes mellitus type 2. PLAN: I discussed the case with Dr. Luong for possible discharge. She is feeling much better after observation through the night. We are going to increase the Lopressor metoprolol tartrate 25 mg t.i.d., increase the magnesium oxide to twice a day. MTDD
== END 2017-03-12 14:50 | disposition home or self-care (01) ==
LOC: ER 11:09 → MEDSURG 18:08
PROVIDERS: ADMIT Emergency Medicine; ATTEND Emergency Medicine
DX: R00.2 Palpitations (principal); I50.30 Unspecified diastolic (congestive) heart failure; E11.9 Type 2 diabetes mellitus without complications; Z79.84 Long term (current) use of oral hypoglycemic drugs; E83.42 Hypomagnesemia; J45.909 Unspecified asthma, uncomplicated; M35.9 Systemic involvement of connective tissue, unspecified
CPT/HCPCS: 99285 ×2; 96365; 82550; 85025; 85730; 85610; 82553 ×2; 80048; 84443; 84484 ×2; 83880; 71046; 93971; 93005 ×2; 93010; G0378 ×2; J7512; J3490; 99220

== ENCOUNTER 2018-12-10 10:28 | Emergency (ER) | payer BC ==
[2018-12-10] MEDS ORDERED: ASPIRIN 325 MG TABLET PO ONE (10:42)
[2018-12-10] MEDS ORDERED: ACETAMINOPHEN 1,000 MG/100 ML BTL IVPB ONE (10:47)
[2018-12-10 10:52] LABS: ABSOLUTE NEUTROPHIL COUNT 4.44; BASO % 0.3 % (0-6); EOS % 1.2 % (0-6); GRAN % 65.2 % (47-80); HEMATOCRIT 41.8 % (35.0-47.0); HEMOGLOBIN 13.9 gm/dl (11.6-16.0); LYMPH % 26.2 % (16-45); MEAN CELL VOLUME 83.4 fl (81-97); MEAN CORPUSCULAR HEMOGLOBIN 27.7 pg (27-33); MEAN CORPUSCULAR HGB CONC 33.3 g/dl (32-36); MEAN PLATELET VOLUME 9.8 fl (7.4-10.4); MONO % 7.1 % (0-9); PLATELET COUNT 298 K/uL (130-400); RED BLOOD COUNT 5.01 M/uL (3.80-5.40); RED CELL DISTRIBUTION WIDTH 13.8 % (11.5-14.5); WHITE BLOOD COUNT W/O DIFF 6.8 K/uL (4.2-12.2)
[2018-12-10 11:04] LABS: BLOOD UREA NITROGEN 20 mg/dL (6-20); CREATININE 0.6 mg/dL (0.5-0.9); EST GLOMERULAR FILTRATION RATE > 60 mL/min; TOTAL PROTEIN 7.3 g/dL (6.6-8.7)
[2018-12-10 11:05] LABS: PARTIAL THROMBOPLASTIN TIME 27.3 SECONDS (24.5-39.1); PROTHROMBIN TIME (PATIENT) 10.1 SECONDS (9.5-12.1)
--- NOTE | 2018-12-10 11:06 | Emergency Department Record ---
History of Present Illness - General Chief Complaint: Chest Pain Stated Complaint: CHEST PAIN Time Seen by Provider: 12/10/18 10:36 Source: Patient Mode of Arrival: Ambulatory Limitations: No limitations - History of Present Illness Initial Comments: The patient is here due to a day hx of L sided CP. The pain does seem to radiate to the L shoulder blade at times. She does describe the pain as an aching heaviness but with no associated SOB, KEYSHAWN, or sweating but with nausea. The pain has been mostly mild the first 4 days but the last 24 hours it has become much worse. She does have a hx of CHF and Diastolic dysfunction and does have cardiac risk factors of Diabetes and Family Hx of CAD. The patient has had multiple heart catheterizations with the last being a year ago at the [facility] and has always had normal coronary arteries. She does see [facility] and is in an experimental trial at the [facility]. Complaint: Chest pain Onset/Timin -: Days(s) Onset: During rest Pain Location: Left chest Pain Radiation: LUE Severity scale (1-10): 7 Quality: Heaviness, Other Consistency: Constant Improves With: Nothing Worsens With: Nothing Context: Other Anginal Symptoms: Nausea Treatments Prior to Arrival: Aspirin - Related Data Home Medications Medication Instructions Recorded Confirmed Last Taken Aspirin [Aspir-Low] 81 mg PO DAILY 12/10/18 12/10/18 Unknown Cetirizine HCl [Zyrtec] 10 mg PO DAILY 12/10/18 12/10/18 Unknown Citalopram Hydrobromide 20 mg PO DAILY 12/10/18 12/10/18 Unknown [Citalopram HBr] Insulin Aspart [Novolog Flexpen] 1 unit SQ DAILY 12/10/18 12/10/18 Unknown Insulin Degludec [Tresiba 1 unit SQ DAILY 12/10/18 12/10/18 Unknown Flextouch U-100] Liraglutide [Victoza 3-Devaughn] 1 unit SQ DAILY 12/10/18 12/10/18 Unknown Lisinopril 2.5 mg PO DAILY 12/10/18 12/10/18 Unknown Torsemide [Demadex] 10 mg PO DAILY 12/10/18 12/10/18 Unknown Allergies Allergy/AdvReac Type Severity Reaction Status Date / Time montelukast [From Singulair] Allergy RASH Verified 03/11/17 11:15 codeine AdvReac Unknown NAUSEA Verified 03/11/17 11:15 amoxicillin [From Augmentin] AdvReac VOMITING Verified 03/11/17 11:15 clavulanic acid AdvReac VOMITING Verified 03/11/17 11:15 [From Augmentin] Travel Screening - Travel/Exposure Within Last 30 Days Have you traveled within the last 30 days?: No Review of Systems Constitutional: Denies: Chills, Fever Eyes: Denies: Eye discharge ENT: Denies: Congestion Respiratory: Denies: Cough, Dyspnea Cardiovascular: Reports: Chest pain. Denies: Arrhythmia Endocrine: Reports: Fatigue Gastrointestinal: Denies: Nausea Genitourinary: Denies: Dysuria Musculoskeletal: Reports: Back pain. Denies: Arthralgia Skin: Denies: Bruising Past Medical History - SOCIAL HISTORY Smoking Status: Former smoker - RESPIRATORY Hx Respiratory Disorders: Yes Hx Asthma: Yes - CARDIOVASCULAR Hx Cardio Disorders: Yes Hx CHF: Yes (left sided) Hx Irregular Heartbeat: Yes Comment:: double heart cath 01/[address] escobedo - NEURO Hx Neuro Disorders: No - GI Hx GI Disorders: No - Hx Genitourinary Disorders: No - ENDOCRINE Hx Endocrine Disorders: Yes Hx Diabetes: Yes - MUSCULOSKELETAL Hx Musculoskeletal Disorders: No - PSYCH Hx Psych Problems: No - HEMATOLOGY/ONCOLOGY Hx Hematology/Oncology Disorders: No Family Medical History Any Significant Family History?: Yes Hx Diabetes: Mother Hx HTN: Mother, Grandparents Physical Exam - General General Appearance: Alert, Oriented x3, Cooperative, No acute distress - Head Head exam: Atraumatic, Normocephalic, Normal inspection - Eye Eye exam: Normal appearance, PERRL - Neck Neck exam: Normal inspection, Full ROM. negative: Tenderness - Respiratory Respiratory exam: Normal lung sounds bilaterally, Chest wall tenderness (There is reproducible chest wall tenderness which does reproduce the patient), Decreased breath sounds (symptoms.). negative: Respiratory distress - Cardiovascular Cardiovascular Exam: Regular rate, Normal rhythm, Normal heart sounds - GI/Abdominal GI/Abdominal exam: Soft, Normal bowel sounds. negative: Tenderness - Extremities Extremities exam: Normal inspection, Full ROM, Normal capillary refill. negative: Tenderness - Neurological Neurological exam: Alert, Normal gait. negative: Abnormal gait, Motor sensory deficit - Psychiatric Psychiatric exam: negative: Anxious Course Vital Signs 12/10/18 10:30 Pulse Rate 73 Respiratory 20 Rate Blood Pressure 131/77 Pulse Ox 94 L - Reevaluation(s) Reevaluation #1: Due to [facility]. Esc[facility]edo being [facility] I did contact him and he did consult on the patient in the ED. 12/10/18 11:06 Reevaluation #2: The patient is doing better at this time but is still having some pain. She appears very comfortable and did have her cardiac echo completed. We ill give IV toradol at this time for the discomfort. 12/10/18 12:05 Reevaluation #3: The patient states the pain is "a lot better" at this time. I did explain all the tests were WNL's relating to her heart and lungs. We will discharge the patient on high dose Motrin and have her F/U next week for recheck. The patient's vital signs are all normal and she has had no signs of any arrhythmia on the monitor. Her RA biox does fun from 92-94% when resting but quickly pops up to 97% with any talking or sitting up. I did explain to her that I do feel she is stable for discharge and the patient also was told the same by Dr. Escobedo. 12/10/18 12:41 Medical Decision Making - Data Complexity MDM Data: Labs Ordered and/or Reviewed, X-Ray Ordered and/or Reviewed, EKG Ordered and/or Reviewed - Lab Data Result diagrams: 12/10/18 10:45 12/10/18 10:45 Lab Results 12/10/18 Range/Units 10:45 WBC 6.8 (4.2-12.2) K/uL RBC 5.01 (3.80-5.40) M/uL Hgb 13.9 (11.6-16.0) gm/dl Hct 41.8 (35.0-47.0) % MCV 83.4 (81-97) fl MCH 27.7 (27-33) pg MCHC 33.3 (32-36) g/dl RDW 13.8 (11.5-14.5) % Plt Count 298 (130-400) K/uL MPV 9.8 (7.4-10.4) fl Gran % 65.2 (47-80) % Lymphocytes % 26.2 (16-45) % Monocytes % 7.1 (0-9) % Eosinophils % 1.2 (0-6) % Basophils % 0.3 (0-6) % Absolute Neutrophils 4.44 - EKG Data -: EKG Interpreted by Me EKG: No Acute Changes, Unchanged From Previous - Radiology Data Radiology results: Report reviewed (CXR: Neg per Rad. Cardiac Echo: Normal per Dr. Escobedo.) Disposition Disposition: Discharge Clinical Impression: Chest wall pain Disposition: Home, Self-Care Condition: (2) Stable Instructions: Chest Wall Pain (ED) Additional Instructions: Please take the Motrin for pain and continue your regular medicines. Please see your Airplane Patroller next week if not better. Return to the ER for any worsening symptoms, pain, fever or any trouble breathing. Forms: Patient Portal Access Time of Disposition: 12:43 Quality - Quality Measures Quality Measures: N/A - Blood Pressure Screening View Details: Yes Does Patient Have Any of the Following: No Blood Pressure Classification: Normal BP Reading Systolic Measurement: 103 Diastolic Measurement: 74 Screening for High Blood Pressure: < Normal BP, F/U Not Required > [G8783]
[2018-12-10 11:07] LABS: GLUCOSE,RANDOM 277 mg/dL (74-109)
[2018-12-10 11:09] LABS: ALB/GLOB RATIO 1.6 (1.1-1.8); ALBUMIN 4.5 g/dL (4.0-5.0); ALKALINE PHOSPHATASE 153 U/L (35-104); ALT/SGPT 27 U/L (<33); AST/SGOT 17 U/L (10.0-35.0)
[2018-12-10 11:20] LABS: THYROID STIMULATING HORMONE 1.67 uIU/mL (0.270-4.20)
[2018-12-10] MEDS ORDERED: KETOROLAC 30 MG/ML VIAL IVP ONE (12:02)
--- NOTE | 2018-12-10 15:26 | Emergency Department Record ---
History of Present Illness - General Chief Complaint: Chest Pain Stated Complaint: CHEST PAIN Time Seen by Provider: 12/10/18 10:36 Source: Patient Mode of Arrival: Ambulatory Limitations: No limitations - History of Present Illness Onset/Timin -: Days(s) Onset: During rest Pain Location: Left chest Pain Radiation: LUE Severity scale (1-10): 7 Quality: Heaviness, Other Consistency: Constant Improves With: Nothing Worsens With: Nothing Context: Other Anginal Symptoms: Nausea Treatments Prior to Arrival: Aspirin - Related Data Home Medications Medication Instructions Recorded Confirmed Last Taken Aspirin [Aspir-Low] 81 mg PO DAILY 12/10/18 12/10/18 Unknown Cetirizine HCl [Zyrtec] 10 mg PO DAILY 12/10/18 12/10/18 Unknown Citalopram Hydrobromide 20 mg PO DAILY 12/10/18 12/10/18 Unknown [Citalopram HBr] Insulin Aspart [Novolog Flexpen] 1 unit SQ DAILY 12/10/18 12/10/18 Unknown Insulin Degludec [Tresiba 1 unit SQ DAILY 12/10/18 12/10/18 Unknown Flextouch U-100] Liraglutide [Victoza 3-Devaughn] 1 unit SQ DAILY 12/10/18 12/10/18 Unknown Lisinopril 2.5 mg PO DAILY 12/10/18 12/10/18 Unknown Torsemide [Demadex] 10 mg PO DAILY 12/10/18 12/10/18 Unknown Previous Rx's Medication Instructions Recorded Ibuprofen [Motrin] 800 mg PO TID PRN #20 tab 12/10/18 Allergies Allergy/AdvReac Type Severity Reaction Status Date / Time montelukast [From Singulair] Allergy RASH Verified 03/11/17 11:15 codeine AdvReac Unknown NAUSEA Verified 03/11/17 11:15 amoxicillin [From Augmentin] AdvReac VOMITING Verified 03/11/17 11:15 clavulanic acid AdvReac VOMITING Verified 03/11/17 11:15 [From Augmentin] Travel Screening - Travel/Exposure Within Last 30 Days Have you traveled within the last 30 days?: No Review of Systems Constitutional: Denies: Chills, Fever Eyes: Denies: Eye discharge ENT: Denies: Congestion Respiratory: Denies: Cough, Dyspnea Cardiovascular: Reports: Chest pain. Denies: Arrhythmia Endocrine: Reports: Fatigue Gastrointestinal: Denies: Nausea Genitourinary: Denies: Dysuria Musculoskeletal: Reports: Back pain. Denies: Arthralgia Skin: Denies: Bruising Past Medical History - SOCIAL HISTORY Smoking Status: Former smoker - RESPIRATORY Hx Respiratory Disorders: Yes Hx Asthma: Yes - CARDIOVASCULAR Hx Cardio Disorders: Yes Hx CHF: Yes (left sided) Hx Irregular Heartbeat: Yes Comment:: double heart cath 01/[address] priest - NEURO Hx Neuro Disorders: No - GI Hx GI Disorders: No - Hx Genitourinary Disorders: No - ENDOCRINE Hx Endocrine Disorders: Yes Hx Diabetes: Yes - MUSCULOSKELETAL Hx Musculoskeletal Disorders: No - PSYCH Hx Psych Problems: No - HEMATOLOGY/ONCOLOGY Hx Hematology/Oncology Disorders: No Family Medical History Any Significant Family History?: Yes Hx Diabetes: Mother Hx HTN: Mother, Grandparents Physical Exam - General Limitations: No limitations Course Vital Signs 12/10/18 12/10/18 12/10/18 10:30 11:15 12:02 Temperature 98.1 F Pulse Rate 73 Pulse Rate [ 71 Microwave Supervisor ] Respiratory 20 18 Rate Blood Pressure 131/77 Blood Pressure 113/75 [Left Arm] Pulse Ox 94 L 92 L 12/10/18 12:57 Temperature Pulse Rate 72 Pulse Rate [ Microwave Supervisor ] Respiratory 18 Rate Blood Pressure 103/74 Blood Pressure [Left Arm] Pulse Ox 96 Medical Decision Making - Lab Data Result diagrams: 12/10/18 10:45 12/10/18 10:45 Lab Results 12/10/18 12/10/18 12/10/18 Range/Units 10:45 10:45 10:45 WBC 6.8 (4.2-12.2) K/uL RBC 5.01 (3.80-5.40) M/uL Hgb 13.9 (11.6-16.0) gm/dl Hct 41.8 (35.0-47.0) % MCV 83.4 (81-97) fl MCH 27.7 (27-33) pg MCHC 33.3 (32-36) g/dl RDW 13.8 (11.5-14.5) % Plt Count 298 (130-400) K/uL MPV 9.8 (7.4-10.4) fl Gran % 65.2 (47-80) % Lymphocytes % 26.2 (16-45) % Monocytes % 7.1 (0-9) % Eosinophils % 1.2 (0-6) % Basophils % 0.3 (0-6) % Absolute Neutrophils 4.44 ESR (0-30) mm/hr PT 10.1 (9.5-12.1) SECONDS INR 1.0 APTT 27.3 (24.5-39.1) SECONDS D-Dimer (0-0.59) mg/L FEU Sodium 135 L (136-145) mmol/L Potassium 3.8 (3.4-4.5) mmol/L Chloride 96 L (98-107) mmol/L Carbon Dioxide 26.0 (22-29) mmol/L Anion Gap 13.0 (7-16) BUN 20 (6-20) mg/dL Creatinine 0.6 (0.5-0.9) mg/dL Estimated GFR > 60 mL/min Random Glucose 277 H (74-109) mg/dL Calcium 9.4 (8.6-10.0) mg/dL Total Bilirubin 0.40 (0.2-1.0) mg/dL AST 17 (10.0-35.0) U/L ALT 27 (<33) U/L Alkaline Phosphatase 153 H (35-104) U/L Troponin T < 0.010 (0-0.010) ng/mL C-Reactive Protein (<0.5) mg/dL Total Protein 7.3 (6.6-8.7) g/dL Albumin 4.5 (4.0-5.0) g/dL Globulin 2.8 (1.4-4.8) gm/dL Albumin/Globulin Ratio 1.6 (1.1-1.8) TSH 1.67 (0.270-4.20) uIU/mL 12/10/18 12/10/18 12/10/18 Range/Units 10:45 10:45 10:45 WBC (4.2-12.2) K/uL RBC (3.80-5.40) M/uL Hgb (11.6-16.0) gm/dl Hct (35.0-47.0) % MCV (81-97) fl MCH (27-33) pg MCHC (32-36) g/dl RDW (11.5-14.5) % Plt Count (130-400) K/uL MPV (7.4-10.4) fl Gran % (47-80) % Lymphocytes % (16-45) % Monocytes % (0-9) % Eosinophils % (0-6) % Basophils % (0-6) % Absolute Neutrophils ESR 18 (0-30) mm/hr PT (9.5-12.1) SECONDS INR APTT (24.5-39.1) SECONDS D-Dimer 0.35 (0-0.59) mg/L FEU Sodium (136-145) mmol/L Potassium (3.4-4.5) mmol/L Chloride (98-107) mmol/L Carbon Dioxide (22-29) mmol/L Anion Gap (7-16) BUN (6-20) mg/dL Creatinine (0.5-0.9) mg/dL Estimated GFR mL/min Random Glucose (74-109) mg/dL Calcium (8.6-10.0) mg/dL Total Bilirubin (0.2-1.0) mg/dL AST (10.0-35.0) U/L ALT (<33) U/L Alkaline Phosphatase (35-104) U/L Troponin T (0-0.010) ng/mL C-Reactive Protein 1.70 H (<0.5) mg/dL Total Protein (6.6-8.7) g/dL Albumin (4.0-5.0) g/dL Globulin (1.4-4.8) gm/dL Albumin/Globulin Ratio (1.1-1.8) TSH (0.270-4.20) uIU/mL Disposition Clinical Impression: Chest wall pain Disposition: Home, Self-Care Condition: (2) Stable Instructions: Chest Wall Pain (ED) Additional Instructions: Please take the Motrin for pain and continue your regular medicines. Please see your Social Services Counselor next week if not better. Return to the ER for any worsening symptoms, pain, fever or any trouble breathing. Prescriptions: Ibuprofen [Motrin] 800 mg PO TID PRN #20 tab PRN Reason: Pain Forms: Patient Portal Access Time of Disposition: 15:26 Quality - Quality Measures Quality Measures: N/A - Blood Pressure Screening View Details: Yes Does Patient Have Any of the Following: No Blood Pressure Classification: Normal BP Reading Systolic Measurement: 103 Diastolic Measurement: 74 Screening for High Blood Pressure: < Normal BP, F/U Not Required > [G8739]
--- NOTE | 2018-12-11 07:42 | RADIOLOGY REPORT ---
EXAM: CHEST, TWO VIEWS HISTORY: CHEST PAIN. TECHNIQUE: Upright PA and lateral views of the chest were obtained. Comparison: Two view chest radiographic examination dated 03/11/17. FINDINGS: The heart is not enlarged and the pulmonary vasculature is nondilated. The lungs and pleural spaces are clear. No evidence of an acute osseous abnormality. An intraatrial occlusive device is questioned in place. IMPRESSION: NO RADIOGRAPHIC EVIDENCE OF ACUTE CARDIOPULMONARY DISEASE. JOB NUMBER: [id number] [facility]
== END 2018-12-10 12:58 | disposition home or self-care (01) ==
LOC: ER 10:28
DX: R07.89 Other chest pain (principal); R11.0 Nausea; E11.9 Type 2 diabetes mellitus without complications; Z79.4 Long term (current) use of insulin; I50.1 Left ventricular failure, unspecified; Z87.891 Personal history of nicotine dependence
CPT/HCPCS: 71046; 80053; 84443; 84484; 85025; 85379; 85610; 85651; 85730; 86140; 93005; 93010; 93306; 96365; 96375; 99285; J1885